=== PATIENT | female | born 1945 | race Caucasian/White ===

== ENCOUNTER 2020-12-05 08:29 | Outpatient (REF) | payer MEDICARE, SELFPAY ==
[2020-12-05 10:00] LABS: Alanine Aminotransferase 37 U/L (0-31); Albumin Level 4.7 g/dL (3.5-5.0); Alkaline Phosphatase 58 U/L (39-117); Anion Gap 13 (12-20); Aspartate Amino Transferase 32 U/L (5-31); Bilirubin Total 0.7 mg/dL (0.0-1.0); Blood Urea Nitrogen 13 mg/dL (9-16); Calcium 9.7 mg/dL (8.4-10.2); Carbon Dioxide 30 mmol/L (22-29); Chloride 103 mmol/L (96-108); Cholesterol 270 mg/dL; Estimated Glomerular Filt Rate > 60; Glucose Fasting 130 mg/dL (60-99); HDL Cholesterol 47 mg/dL; LDL Cholesterol Calculated 162 mg/dl; Potassium 5.2 mmol/L (3.3-5.1); Sodium 141 mmol/L (135-145); Total Protein 7.8 g/dL (6.5-8.0); Triglycerides 305 mg/dL
[2020-12-09 12:56] LABS: Vitamin D 25-OH, D2 <4 ng/mL; Vitamin D 25-OH, D3 21 ng/mL; Vitamin D 25-OH, Total 21 ng/mL (30-100)
== END 2020-12-05 08:30 | disposition home or self-care (01) ==
LOC: HO.LAB 08:29
PROVIDERS: PCP Internal Medicine; Visit Provider Internal Medicine
DX: I10 Essential (primary) hypertension (principal); E55.9 Vitamin D deficiency, unspecified; E78.5 Hyperlipidemia, unspecified
CPT/HCPCS: 36415; 80053; 80061; 82306

== ENCOUNTER 2021-08-14 08:22 | Outpatient (REF) | payer MEDICARE, SELFPAY ==
[2021-08-14 10:01] LABS: Alanine Aminotransferase 29 U/L (0-31); Albumin Level 4.8 g/dL (3.5-5.0); Alkaline Phosphatase 58 U/L (39-117); Anion Gap 15 (12-20); Aspartate Amino Transferase 25 U/L (5-31); Bilirubin Total 0.6 mg/dL (0.0-1.0); Blood Urea Nitrogen 13 mg/dL (9-16); Calcium 10.2 mg/dL (8.4-10.2); Carbon Dioxide 28 mmol/L (22-29); Chloride 103 mmol/L (96-108); Cholesterol 287 mg/dL; Estimated Glomerular Filt Rate > 60; Glucose Fasting 127 mg/dL (60-99); HDL Cholesterol 46 mg/dL; LDL Cholesterol Calculated 170 mg/dl; Sodium 141 mmol/L (135-145); Total Protein 7.9 g/dL (6.5-8.0); Triglycerides 358 mg/dL
[2021-08-18 14:56] LABS: Vitamin D 25-OH, D2 <4 ng/mL; Vitamin D 25-OH, D3 34 ng/mL; Vitamin D 25-OH, Total 34 ng/mL (30-100)
== END 2021-08-14 08:23 | disposition home or self-care (01) ==
LOC: HO.LAB 08:22
PROVIDERS: PCP Internal Medicine; Visit Provider Internal Medicine
DX: E55.9 Vitamin D deficiency, unspecified (principal); E78.5 Hyperlipidemia, unspecified; E11.9 Type 2 diabetes mellitus without complications
CPT/HCPCS: 36415; 80053; 80061; 82306

== ENCOUNTER 2021-08-16 10:34 | Outpatient (REF) | payer MEDICARE, SELFPAY ==
[2021-08-16 11:52] LABS: Creatinine Urine 35.89 mg/dL; Microalbumin Urine < 5.0 mg/L
== END 2021-08-16 10:35 | disposition home or self-care (01) ==
LOC: HO.LNP 10:34
PROVIDERS: Visit Provider Internal Medicine
DX: E11.9 Type 2 diabetes mellitus without complications (principal)
CPT/HCPCS: 82043

== ENCOUNTER 2022-01-15 08:30 | Outpatient (REF) | payer MEDICARE, SELFPAY ==
[2022-01-15 09:28] LABS: Alanine Aminotransferase 16 U/L (0-31); Albumin Level 4.5 g/dL (3.5-5.0); Alkaline Phosphatase 51 U/L (39-117); Anion Gap 10 (12-20); Aspartate Amino Transferase 21 U/L (5-31); Bilirubin Total 0.6 mg/dL (0.0-1.0); Blood Urea Nitrogen 12 mg/dL (9-16); Calcium 9.7 mg/dL (8.4-10.2); Carbon Dioxide 29 mmol/L (22-29); Chloride 106 mmol/L (96-108); Cholesterol 165 mg/dL; Estimated Glomerular Filt Rate > 60; Glucose Fasting 121 mg/dL (60-99); HDL Cholesterol 50 mg/dL; LDL Cholesterol Calculated 87 mg/dl; Potassium 4.9 mmol/L (3.3-5.1); Sodium 140 mmol/L (135-145); Total Protein 7.3 g/dL (6.5-8.0); Triglycerides 143 mg/dL
[2022-01-15 11:50] LABS: Creatinine Urine 201.09 mg/dL; Microalbum/Creatinine Ratio Ur 9.9 ug/mg cr
[2022-01-21 14:41] LABS: Vitamin D 25-OH, D2 <4 ng/mL; Vitamin D 25-OH, D3 32 ng/mL; Vitamin D 25-OH, Total 32 ng/mL (30-100)
== END 2022-01-15 08:31 | disposition home or self-care (01) ==
LOC: HO.LAB 08:30
PROVIDERS: PCP Internal Medicine; Visit Provider Internal Medicine
DX: E78.2 Mixed hyperlipidemia (principal); E11.9 Type 2 diabetes mellitus without complications; E78.5 Hyperlipidemia, unspecified; E55.9 Vitamin D deficiency, unspecified
CPT/HCPCS: 36415; 80053; 80061; 82043; 82306

== ENCOUNTER 2023-03-07 08:43 | Outpatient (REF) | payer MEDICARE, SELFPAY ==
[2023-03-07 10:35] LABS: Creatinine Urine 121.92 mg/dL; Microalbum/Creatinine Ratio Ur 8.2 ug/mg cr
[2023-03-07 11:02] LABS: Alanine Aminotransferase 23 U/L (0-31); Albumin Level 4.5 g/dL (3.5-5.0); Alkaline Phosphatase 60 U/L (39-117); Anion Gap 13 (12-20); Aspartate Amino Transferase 22 U/L (5-31); Bilirubin Total 0.6 mg/dL (0.0-1.0); Blood Urea Nitrogen 11 mg/dL (9-16); Calcium 10.3 mg/dL (8.4-10.2); Carbon Dioxide 28 mmol/L (22-29); Chloride 104 mmol/L (96-108); Cholesterol 262 mg/dL; Estimated Glomerular Filt Rate > 60; Glucose Fasting 126 mg/dL (60-99); HDL Cholesterol 47 mg/dL; LDL Cholesterol Calculated 155 mg/dl; Potassium 5.2 mmol/L (3.3-5.1); Sodium 140 mmol/L (135-145); Total Protein 7.8 g/dL (6.5-8.0); Triglycerides 304 mg/dL
[2023-03-07 11:18] LABS: Vitamin D 25-OH Total 37.4 ng/mL (>30)
== END 2023-03-07 08:44 | disposition home or self-care (01) ==
LOC: HO.LAB 08:43
PROVIDERS: PCP Internal Medicine; Visit Provider Internal Medicine
DX: E55.9 Vitamin D deficiency, unspecified (principal); E11.9 Type 2 diabetes mellitus without complications; E78.5 Hyperlipidemia, unspecified
CPT/HCPCS: 36415; 80053; 80061; 82043; 82306

== ENCOUNTER 2023-03-11 08:30 | Outpatient (REF) | payer MEDICARE, SELFPAY ==
--- NOTE | 2023-03-11 08:41 | ECG_ITS ---
Test Reason : CK RHYTHM Blood Pressure : / mmHG Vent. Rate : 098 BPM Atrial Rate : 098 BPM P-R Int : 160 ms QRS Dur : 076 ms QT Int : 356 ms P-R-T Axes : 022 -22 057 degrees QTc Int : 454 ms Normal sinus rhythm Moderate voltage criteria for LVH, may be normal variant ( R in aVL , Rob product ) Borderline ECG No previous ECGs available Referred By: Peri Trinidad Electronically Signed By:Eduardo Nunes
[2023-03-11 09:58] LABS: Creatinine Urine 119.64 mg/dL
[2023-03-11 10:10] LABS: Alanine Aminotransferase 22 U/L (0-31); Albumin Level 4.6 g/dL (3.5-5.0); Alkaline Phosphatase 60 U/L (39-117); Anion Gap 13 (12-20); Aspartate Amino Transferase 22 U/L (5-31); Bilirubin Total 0.6 mg/dL (0.0-1.0); Blood Urea Nitrogen 14 mg/dL (9-16); Calcium 10.2 mg/dL (8.4-10.2); Carbon Dioxide 28 mmol/L (22-29); Chloride 106 mmol/L (96-108); Cholesterol 268 mg/dL; Estimated Glomerular Filt Rate > 60; Glucose Fasting 134 mg/dL (60-99); Glucose Random 135 mg/dL (60-115); HDL Cholesterol 49 mg/dL; LDL Cholesterol Calculated 162 mg/dl; Potassium 5.1 mmol/L (3.3-5.1); Sodium 142 mmol/L (135-145); Total Protein 8.1 g/dL (6.5-8.0); Triglycerides 285 mg/dL
[2023-03-11 10:17] LABS: Vitamin D 25-OH Total 36.9 ng/mL (>30)
[2023-03-12 16:29] LABS: Calcium (PTHI) 9.9 mg/dL (8.6-10.4); PTHI 33 pg/mL (16-77)
[2023-03-14 13:08] LABS: Calcium, Ionized 5.2 mg/dL (4.7-5.5)
== END 2023-03-11 08:31 | disposition home or self-care (01) ==
LOC: HO.LAB 08:30
PROVIDERS: PCP Internal Medicine; Visit Provider Internal Medicine
DX: E83.52 Hypercalcemia (principal); E78.5 Hyperlipidemia, unspecified; E55.9 Vitamin D deficiency, unspecified; E11.9 Type 2 diabetes mellitus without complications; E87.5 Hyperkalemia; I10 Essential (primary) hypertension
CPT/HCPCS: 36415; 80053; 80061; 82043; 82306; 82330; 83970; 93005

== ENCOUNTER 2023-05-26 16:42 | Outpatient (AMB) | payer MEDICARE, SELFPAY ==
[2023-05-26 16:44] VITALS: BP 160/72; BMI 26.6
--- NOTE | 2023-05-26 16:44 | A.OFFPC_ITS ---
Vital Signs 05/26/23 16:44 05/26/23 17:10 Height 5 ft 1 in Weight 141 lb BMI 26.6 BP 160/72 H 160/80 H Blood Pressure Location Lt brachial Lt brachial Position Sitting Sitting Intake Visit Reasons: PE Intake Note: Patient here for a physical exam External Grinder Tender Required: No Accompanied by: Family/Other Allergies penicillin V Allergy (Intermediate, Verified 05/26/23 16:53) rash Medication List - Last Reconciled 05/26/23 by Peri Trinidad MD blood pressure monitor As directed cholecalciferol (vitamin D3) 50 mcg PO DAILY 90 days lisinopril 30 mg PO DAILY 90 days Tobacco use date assessed: 11/05/22 Fall risk assessment: No Falls in past year Last assessed Fall Risk: 05/26/23 Dental Screening Dental Screen Date: 05/26/23 Did you have a dental visit in the last 12 months?: No Did you have a dental problem in the last 6 months where you did not have access to dental care?: No Was dental information given to patient?: Patient has dentist HPI HPI Comments History of Present Illness Details This is a 77-year-old female with diabetes mellitus type 2 that comes for her physical exam accompanied by son in law. Last A1c was within goal. Declines mammogram and bone density. No need for colonoscopy or Pap smear due to age. LDL not on goal and I will add statin. Blood pressure elevated and will be recheck in 3 weeks by nurse navigator. [facility] Medical History Mixed hyperlipidemia Diabetes mellitus Hypovitaminosis D Knee pain Essential hypertension Surgical History History of appendectomy H/O: section Family History Father Glaucoma Alzheimer disease Mother Hypertension Renal failure Social History Housing: House Alcohol intake: never Patient Tobacco Use Status: Never used Tobacco e-Cigarette/Vaping Use: Never Used Second Hand Smoke Exposure: No service: No Current occupational status: unemployed Cognitive needs: No Hearing needs: No Vision needs: Yes Questionnaire Thrive Questionnaire Date Thrive assessed: 11/05/22 CONSUELO-7 AMB Questionnaire CONSUELO-7 Date CONSUELO - 7 assessed: 11/05/22 Source: Developed by Drs. Eliu Davis, Nara Johnson, Chris Bone and colleagues, with an educational mary jane from [employer]. Review of Systems Const All systems reviewed & are unremarkable except as noted in HPI and below Eyes Reports no additional complaints, Denies change in vision and Denies other visual disturbances Card Denies chest pain at rest, Denies chest pain with activity, Denies edema, Denies irregular heart rhythm, Denies claudication, Denies dyspnea, Denies dyspnea on exertion, Denies orthopnea, Denies paroxysmal nocturnal dyspnea and Denies slow heart rate Resp Denies cough, Denies dyspnea and Denies dyspnea on exertion GI Denies abdominal pain, Denies change in bowel habits, Denies excessive flatus, Denies nausea and Denies vomiting Denies urinary incontinence, Denies urinary hesitancy and Denies urinary urgency Musc Denies abnormal gait, Denies atrophy, Denies deformity and Denies limited range of motion Skin/Breast Denies bleeding lesions, Denies changing lesions and Denies rash Neuro Denies abnormal gait and Denies lack of coordination Physical exam (Primary Care) Vital Signs: Last Vital Signs BP 160/72 H 05/26/23 16:44 BMI result Body Mass Index 26.6 Tobacco/Smoking Status: Tobacco use Status Tobacco use date assessed 11/05/22 05/26/23 16:50 Patient Tobacco Use Status Never used Tobacco 05/26/23 16:50 e-Cigarette/Vaping Use Never Used 05/26/23 16:50 Thrive Assessment: Date of Thrive Assessment Date Thrive assessed 11/05/22 05/26/23 16:50 Const Orientation/consciousness: patient oriented x3 HENMT Head: Yes normal to inspection, Yes normocephalic and Yes atraumatic Ears: external ears normal Eyes General: appearance normal, both eyes and all related structures Eyelids: Yes eyelids normal Conjunctivae: conjunctivae normal Neck Neck: Yes normal visual inspection and Yes supple Resp Effort & Inspection: normal respiratory effort Auscultation: clear to auscultation bilaterally Cardio Jugular venous distension: no JVD Rate: regular rate Rhythm: regular rhythm Heart sounds: S1 normal heart sound present and S2 normal heart sound present GI Inspection: Yes normal to inspection Palpation (GI): Soft to palpation and nontender Auscultation: normal bowel sounds Skin General skin exam: no rashes or lesions noted Neuro General: patient oriented x3 and no focal motor deficits Extrem General: Yes full ROM Psych Appearance: grossly normal Assessment and Plan Assessment & Plan (1) Physical exam: Code(s): Z00.00 - Encounter for general adult medical examination without abnormal findings Plan: Repeat in a year. (2) Diabetes mellitus: Code(s): E11.9 - Type 2 diabetes mellitus without complications Plan: Continue with diet. A1c goal is equal or less than 7%. Orders: Orders Lipid Panel Today E78.5 - Hyperlipidemia, unspecified Comprehensive [place]. Panel Fast Today E11.9 - Type 2 diabetes mellitus without complications Vitamin D 25-OH Total Today E55.9 - Vitamin D deficiency, unspecified Microalbumin, Random (w Creat) Today E11.9 - Type 2 diabetes mellitus without complications Medications: New rosuvastatin 20 mg PO DAILY 90 days 90 tabs 1RF E78.2 - Mixed hyperlipidemia Coding Level of Care Code Est Pt Prev Care >65y(88819) Diagnoses Physical exam Z00.00 Diabetes mellitus E11.9 Time Spent (min) 34
[2023-05-26 17:10] VITALS: BP 160/80
== END 2023-05-26 17:06 | disposition home or self-care (01) ==
PROVIDERS: PCP Internal Medicine; Visit Provider Internal Medicine
DX: Z00.00 Encounter for general adult medical examination without abnormal findings (principal); E11.9 Type 2 diabetes mellitus without complications
CPT/HCPCS: 99397

== ENCOUNTER 2023-06-17 13:07 | Outpatient (AMB) | payer MEDICARE, SELFPAY ==
--- NOTE | 2023-06-17 13:16 | A.OFFVIS_ITS ---
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 Recent EKG had shown left ventricular hypertrophy and hence she has been referred. There is no history of any coronary artery disease or myocardial infarction or cardiomyopathy or in fact anything cardiac related. She has got poorly controlled hypertension. It seems that there might be also an anxiety component related. She does not do home blood pressures. With activity, she may feel short of breath. No clear anginal-type chest pains. Her hemoglobin A1c is borderline high at 6 0.5%. Not on any diabetic medications. Also has elevated lipids. Daughter acted as interpreter translator. Appropriate form signed. [facility] Medical History Mixed hyperlipidemia Diabetes mellitus Hypovitaminosis D Knee pain Essential hypertension Surgical History History of appendectomy H/O: section Family History Father Glaucoma Alzheimer disease Mother Hypertension Renal failure Social History Housing: House Alcohol intake: never Patient Tobacco Use Status: Never used Tobacco e-Cigarette/Vaping Use: Never Used Second Hand Smoke Exposure: No service: No Current occupational status: unemployed Cognitive needs: No Hearing needs: No Vision needs: Yes Review of Systems Const Denies weakness Eyes Denies loss of vision ENT Denies dizziness Card Denies chest pain, Denies chest pain with activity, Denies syncope, Denies rapid heart rate, Denies pedal edema, Denies edema, Denies leg edema, Denies lightheadedness, Denies palpitations, Denies dyspnea, Denies dyspnea on exertion and Denies orthopnea Resp Denies cough, Denies dyspnea, Denies dyspnea on exertion and Denies wheezing GI Denies hematochezia and Denies change in stool character Denies hematuria, Denies urinary frequency and Denies dysuria Musc Denies abnormal gait, Denies muscle cramps, Denies muscle weakness, Denies numbness, Denies radiating pain into limb and Denies tingling Skin/Breast Denies nail changes and Denies rash Neuro Denies Abnormal speech present, Denies abnormal gait, Denies dizziness, Denies syncope, Denies loss of vision, Denies memory loss, Denies numbness, Denies tingling and Denies weakness Psych Denies depression and Denies memory loss Endo Denies palpitations Aller/Immun Denies wheezing Physical Exam Vital Signs: Last Vital Signs Pulse 116 H 06/17/23 13:17 BP 160/80 H 06/17/23 13:17 BMI result Body Mass Index 27.0 Const General: comfortable and no acute distress Orientation/consciousness: patient oriented x3 HEENT Other: Unremarkable Head: Yes normal to inspection Neck Neck: Yes normal visual inspection Chest Chest palpation & inspection: normal inspection of the chest Resp Auscultation: clear to auscultation bilaterally Cardio Palpation: normal PMI Heart sounds: S1 normal heart sound present, S2 normal heart sound present, no gallops, no murmurs and no rubs GI Palpation (GI): Soft to palpation Back/Spine/Pelvis Other: unremarkable Skin General skin exam: no rashes or lesions noted Neuro General: patient oriented x3 Speech: No Abnormal speech present Extrem General: Yes normal to inspection Psych Mental Status: mental status grossly normal Assessment & Plan Assessment & Plan (1) Essential hypertension: Code(s): I10 - Essential (primary) hypertension (2) LVH (left ventricular hypertrophy): Code(s): I51.7 - Cardiomegaly (3) SOB (shortness of breath): Code(s): R06.02 - Shortness of breath Plan EKG with sinus rhythm at 98/Min; left ventricular hypertrophy by voltage criteria. LVH on EKG may indicate longstanding poorly controlled hypertension. Needs echocardiogram for LV function assessment as well as any diastolic dysfunction. Due to multiple risk factors including poorly controlled hypertension, borderline diabetes, dyslipidemia, proceed with myocardial perfusion imaging study for ischemia evaluation. For hypertension, add Amlodipine. She is currently on lisinopril. Potassium is already borderline high. Hence will probably not be able to increase the dose further. Plan discussed with patient and daughter. Orders: Orders NM cardiolite stress test Today I25.10 - Atherosclerotic heart disease of [place] coronary artery without angina pectoris, R06.02 - Shortness of breath CA echo transthoracic complete Today I51.7 - Cardiomegaly CA stress test Today I25.10 - Atherosclerotic heart disease of [place] coronary artery without angina pectoris, R06.02 - Shortness of breath Medications: New amlodipine 10 mg PO DAILY 90 tabs 3RF Coding Level of Care Code New Pt Level 4 (81473) Diagnoses Essential hypertension I10 LVH (left ventricular hypertrophy) I51.7 SOB (shortness of breath) R06.02
[2023-06-17 13:17] VITALS: BP 160/80; PULSE 116; BMI 27.0
== END 2023-06-17 13:44 | disposition home or self-care (01) ==
PROVIDERS: PCP Internal Medicine; Visit Provider Internal Medicine
DX: I10 Essential (primary) hypertension (principal); I51.7 Cardiomegaly; R06.02 Shortness of breath
CPT/HCPCS: 99204

== ENCOUNTER → 2023-06-17 13:07 | Outpatient (BNVA) | payer MEDICARE, SELFPAY | PROVIDERS: PCP Internal Medicine; Visit Provider Internal Medicine ==

== ENCOUNTER 2023-07-15 08:52 | Outpatient (AMB) | payer MEDICARE, SELFPAY ==
--- NOTE | 2023-07-15 09:00 | MHC.PC.OV ---
Vital Signs 07/15/23 09:03 Height 5 ft 7 in Weight 142 lb BMI 22.2 BP 140/60 H Blood Pressure Location Lt brachial Position Sitting Pulse 93 Pulse Source Pulse Oximeter Pulse Oximetry (%) 98 Oxygen Delivery Method Room Air Intake Visit Reasons: DM Intake Note: Patient here for a follow up DM Loss Prevention Lead Required: No Accompanied by: Self / Same As Patient Allergies penicillin V Allergy (Intermediate, Verified 07/15/23 09:33) rash Medication List - Last Reconciled 07/15/23 by Peri Trinidad MD amlodipine 10 mg PO DAILY blood pressure monitor As directed cholecalciferol (vitamin D3) 50 mcg PO DAILY 90 days lisinopril 20 mg PO DAILY rosuvastatin 20 mg PO DAILY 90 days Tobacco use date assessed: 11/05/22 Fall risk assessment: No Falls in past year Last assessed Fall Risk: 07/15/23 Dental Screening Dental Screen Date: 07/15/23 Did you have a dental visit in the last 12 months?: No Did you have a dental problem in the last 6 months where you did not have access to dental care?: No Was dental information given to patient?: Patient has dentist HPI HPI Comments History of Present Illness Details This is a 77-year-old female with diabetes mellitus type 2 controlled with diet, hypertension, mixed hyperlipidemia and low vitamin-D that comes accompanied by son in law for follow-up on her conditions. A1c within goal. Blood pressure stable. Last cholesterol was elevated and this will be repeated. Vitamin-D normal on supplements. No chest pain or shortness of breath. [facility] Medical History Mixed hyperlipidemia Diabetes mellitus Hypovitaminosis D Knee pain Essential hypertension Surgical History History of appendectomy H/O: section Family History Father Glaucoma Alzheimer disease Mother Hypertension Renal failure Social History Housing: House Alcohol intake: never Patient Tobacco Use Status: Never used Tobacco e-Cigarette/Vaping Use: Never Used Second Hand Smoke Exposure: No service: No Current occupational status: unemployed Cognitive needs: No Hearing needs: No Vision needs: Yes Questionnaire Thrive Questionnaire Date Thrive assessed: 11/05/22 CONSUELO-7 AMB Questionnaire CONSUELO-7 Date CONSUELO - 7 assessed: 11/05/22 Source: Developed by Drs. Eliu Davis, Nara Johnson, Chris Bone and colleagues, with an educational mary jane from [employer]. Review of Systems Const All systems reviewed & are unremarkable except as noted in HPI and below Eyes Reports no additional complaints, Denies change in vision and Denies other visual disturbances Card Denies chest pain at rest, Denies chest pain with activity, Denies edema, Denies irregular heart rhythm, Denies claudication, Denies dyspnea, Denies dyspnea on exertion, Denies orthopnea, Denies paroxysmal nocturnal dyspnea and Denies slow heart rate Resp Denies cough, Denies dyspnea and Denies dyspnea on exertion GI Denies abdominal pain, Denies change in bowel habits, Denies excessive flatus, Denies nausea and Denies vomiting Denies urinary incontinence, Denies urinary hesitancy and Denies urinary urgency Musc Denies abnormal gait, Denies atrophy, Denies deformity and Denies limited range of motion Skin/Breast Denies bleeding lesions, Denies changing lesions and Denies rash Neuro Denies abnormal gait, Denies behavioral changes and Denies lack of coordination Psych Denies behavioral changes Physical exam (Primary Care) Vital Signs: Last Vital Signs Pulse 93 07/15/23 09:03 BP 140/60 H 07/15/23 09:03 Pulse Ox 98 07/15/23 09:03 Oxygen Delivery Method Room Air 07/15/23 09:03 BMI result Body Mass Index 22.2 Tobacco/Smoking Status: Tobacco use Status Tobacco use date assessed 11/05/22 07/15/23 09:02 Patient Tobacco Use Status Never used Tobacco 07/15/23 09:02 e-Cigarette/Vaping Use Never Used 07/15/23 09:02 Thrive Assessment: Date of Thrive Assessment Date Thrive assessed 11/05/22 07/15/23 09:02 Eyes General: appearance normal, both eyes and all related structures Eyelids: Yes eyelids normal Conjunctivae: conjunctivae normal Neck Neck: Yes normal visual inspection and Yes supple Resp Effort & Inspection: normal respiratory effort Auscultation: clear to auscultation bilaterally Cardio Jugular venous distension: no JVD Rate: regular rate Rhythm: regular rhythm Heart sounds: S1 normal heart sound present and S2 normal heart sound present Extrem General: Yes full ROM Office Procedures Flu Questionnaire Does the patient have a severe egg allergy?: No Does the patient have severe life threatening allergies?: No Does the patient have a fever or illness today?: No Has the patient ever had Guillain-[place] Syndrome?: No Has the patient ever had any past reaction to a flu shot?: No Results AMB Hemoglobin A1c AMB Hemoglobin A1c 6.3 % Last Edit by ALICE Dubois on 07/15/23 09:22 Immunizations flu vacc [id number] 6mos up(PF) 60 mcg(15 mcgx4)/0.5 mL IM syringe Performing Provider: Peri Trinidad MD [facility] Administered by: LAICE Dubois on 07/15/23 09:45 Dose Route Admin Location Dispensed Lot Number Expiration Date NDC Equal Opportunity Officer 0.5 mL IM Right Deltoid 0.5 mL [id number] 03/14/24 80423-373-68 [employer] VIS Given Date VIS Provided VIS Publication Date 07/15/23 Single Vaccine 21 Eligibility Eligibility Date Funding Source Not [facility] Eligible 07/15/23 Private Results Reviewed Results Reviewed: Laboratory Last Values Hgb A1c (Clinic) 6.3 % (4.0-6.0) H 07/15/23 09:20 Assessment and Plan Assessment & Plan (1) Diabetes mellitus: Code(s): E11.9 - Type 2 diabetes mellitus without complications Plan: Continue low-carbohydrate diet. (2) Mixed hyperlipidemia: Code(s): E78.2 - Mixed hyperlipidemia Plan: Continue statins. Repeat lipid panel. LDL goal is less than 70. (3) Hypovitaminosis D: Code(s): E55.9 - Vitamin D deficiency, unspecified Plan: Continue vitamin-D supplements. (4) Essential hypertension: Code(s): I10 - Essential (primary) hypertension Plan: Continue lisinopril and amlodipine. Blood pressure goal is equal or less than 130/80. Recheck blood pressure with nurse navigator in 3 weeks. Orders: Orders Influenza [id number] Immunization Today Z23 - Encounter for immunization Comprehensive [place]. Panel Fast Today E11.9 - Type 2 diabetes mellitus without complications AMB Hemoglobin A1c Today E11.9 - Type 2 diabetes mellitus without complications Vitamin D 25-OH Total Today E55.9 - Vitamin D deficiency, unspecified Lipid Panel Today E78.5 - Hyperlipidemia, unspecified Microalbumin, Random (w Creat) Today E11.9 - Type 2 diabetes mellitus without complications Coding Level of Care Code Est Pt Level 4 (41995) Diagnoses Diabetes mellitus E11.9 Mixed hyperlipidemia E78.2 Hypovitaminosis D E55.9 Essential hypertension I10 Time Spent (min) 24
[2023-07-15 09:03] VITALS: BP 140/60; PULSE 93; O2SAT 98; BMI 22.2
== END 2023-07-15 09:47 | disposition home or self-care (01) ==
PROVIDERS: PCP Internal Medicine; Visit Provider Internal Medicine
DX: E11.9 Type 2 diabetes mellitus without complications (principal); E78.2 Mixed hyperlipidemia; E55.9 Vitamin D deficiency, unspecified; I10 Essential (primary) hypertension; Z23 Encounter for immunization
CPT/HCPCS: 83036; 90471; 90686; 99214

== ENCOUNTER → 2023-08-01 08:04 | Outpatient (REF) | payer MEDICARE, SELFPAY ==
--- NOTE | 2023-08-01 08:09 | CA_ITS ---
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 The visually estimated ejection fraction is >70%. - There is mild calcification of the aortic valve. - There is mild aortic valve regurgitation. - There is moderate mitral annular calcification. Findings Left Ventricle Normal left ventricular cavity size. The left ventricular systolic function is hyperdynamic. The visually estimated ejection fraction is >70%. There is no evidence of regional wall motion abnormalities. Evidence suggests grade I (mild) diastolic dysfunction. There is mild septal asymmetric hypertrophy. Right Ventricle Normal right ventricular cavity size and systolic function. Atria Both atria are normal in size. Aortic Valve There is a normal trileaflet aortic valve. There is mild calcification of the aortic valve. There is no aortic valve stenosis. There is mild aortic valve regurgitation. Mitral Valve There is moderate mitral annular calcification. There is no mitral valve regurgitation. There is no mitral valve stenosis. Pulmonic Valve The pulmonic valve is likely normal. Tricuspid Valve There is trace tricuspid valve regurgitation. There is no evidence of pulmonary hypertension. Great Vessels The asc aorta is normal in size. Venous The inferior vena cava is normal in size and collapses greater than 50% with inspiration. Pericardium/Pleural There is no evidence of pericardial effusion. Prior Study Comparison No prior study available for comparison. Measurements 2D Linear Measurements IVSd: 1.17 0.6-0.9/0.6-1.0 cm LVIDd: 3.83 3.9-5.3/4.2-5.9 cm LVIDd Index: 2.27 2.4-3.2/2.2-3.1 cm/m2 LVIDs: 1.48 2.0-3.6 cm LVPWd: 0.89 0.7-1.1 cm LA Diam: 3.60 2.7-3.8/3.0-4.0 cm LAIDs Index: 2.13 1.5-2.3 cm/m2 LV Mass: 153.97 67-162/88-224 g LV Mass Index: 91.11 43-95/49-115 g/m2 LVOT Diam: 1.90 3.0+(-)1.3 cm 2D Systolic Function EF 4C: 74.20 >55% EF 2C: 72.50 >55% EF BiP: 73.90 >55% Mitral Valve MV VTI: 0.28 MV Pk Sanjay: 1.90 MV Mn Sanjay: 0.98 MV Pk Grad: 14.00 MV Mn Grad: 5.00 MV Pk E: 1.07 MV PK A: 1.60 MV Decel Time: 237.00 E/A: 0.70 E'Lateral: 3.48 E'Medial: 4.13 E/E' Med: 25.90 E/E' Lat: 30.70 PHT: 69.00 MVA PHT: 3.19 MVA Continuity: 3.41 Decel [place]: 4.50 Aortic Valve AoV Pk Sanjay: 1.86 AoV Mn Sanjay: 1.33 AoV VTI: 0.41 AoV Pk Grad: 14.00 Aov Mn Grad: 8.00 ANNAMARIE Cont.VTI: 2.34 AI Pk Sanjay: 4.24 AI VTI: 1.38 AI [place]: 3.86 LVOT LVOT Pk Sanjay: 1.59 LVOT Mn Sanjay: 1.01 LVOT VTI: 0.34 LVOT Pk Grad: 10.00 LVOT Mn Grad: 5.00 LVOT Diam: 1.90 LVOT Area: 2.84 Diastolic Function MV Pk E: 1.07 MV Pk A: 1.60 E/A: 0.70 E'Medial: 4.13 E/E' Med: 25.90 E' Laterial: 3.48 E/E' Lat: 30.70 Right Ventricle TAPSE (mm): 25.60 TVS' Sanjay: 12.60 Tricuspid Valve TR Pk Sanjay: 1.96 TR Pk Grad: 15.00 RA Press: 3.00 RVSP: 18.00 Great Vessels Aorta Sinus of Valsalva: 3.20 2.0-3.5 cm Ao Asc: 3.60 2.1-3.4 cm Pulmonary Valve PV Pk Sanjay: 1.21 Peak PV Grad: 6.00 Updated in Other Vendor System with Status of Final Erasto Cordoba MD electronically signed on 08/02/2023 1:17:20 PM with status of Final
--- NOTE | 2023-08-01 08:09 | CA_ITS ---
Acquisition Time: 2023-08-01 09:13:52 Total Exercise Time: 00:00:11 Test Indications: ABN EKG Medications: SEE H Protocol: ALIN Max HR: 113 BPM 79% of Pred: 143 BPM Max BP: 138/060 mmHG Max Work Load: 1.0 METS Exercise stress test exercise 11 sec of Alin protocol termintated due to safety/ pt could not keep up with treadmill. Patient refused nculear portion due to claustophobia. Referred By: Erasto Cordoba Overread By: Maribeth Jenkins
== END ==
LOC: HO.CARD 08:04
PROVIDERS: PCP Internal Medicine; Visit Provider Internal Medicine
DX: I51.7 Cardiomegaly (principal); I25.10 Atherosclerotic heart disease of native coronary artery without angina pectoris; R06.02 Shortness of breath
CPT/HCPCS: 93017; 93306

== ENCOUNTER → 2023-08-01 08:09 | Outpatient (BNV) | payer MEDICARE, SELFPAY | PROVIDERS: PCP Internal Medicine; Visit Provider Nurse Practitioner | DX: R94.31 Abnormal electrocardiogram [ECG] [EKG] (principal) | CPT/HCPCS: 93016; 93018; 93306 ==

== ENCOUNTER 2023-11-27 09:07 | Outpatient (AMB) | payer MEDICARE, SELFPAY ==
--- NOTE | 2023-11-27 09:09 | MHC.PC.OV ---
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 by: Daughter Allergies penicillin V Allergy (Intermediate, Verified 11/27/23 09:24) rash Medication List - Last Reconciled 11/27/23 by Peri Trinidad MD amlodipine 10 mg PO DAILY blood pressure monitor As directed cholecalciferol (vitamin D3) 50 mcg PO DAILY 90 days clindamycin HCl 300 mg PO TID lisinopril 20 mg PO DAILY rosuvastatin 20 mg PO DAILY 90 days Tobacco use date assessed: 11/27/23 Fall risk assessment: No Falls in past year Last assessed Fall Risk: 11/27/23 Dental Screening Dental Screen Date: 11/27/23 Did you have a dental visit in the last 12 months?: Yes Did you have a dental problem in the last 6 months where you did not have access to dental care?: No Was dental information given to patient?: Patient has dentist HPI HPI Comments History of Present Illness Details This is a 78-year-old female with hypertension, diabetes mellitus type 2, mixed hyperlipidemia and low vitamin-D that comes today accompanied by daughter complaining of muscle cramps that has been happening for few months. She thought it was rosuvastatin and stop taking it for a few months but still muscle cramps in hands and legs are happening. I will check her magnesium and other electrolytes. Blood pressure stable. Vitamin-D levels and LDL will be checked. No chest pain or shortness of breath. Minimal depression due to the loss of her . A1c of 7% today control with low-carbohydrate diet. [facility] Medical History Mixed hyperlipidemia Diabetes mellitus Hypovitaminosis D Knee pain Essential hypertension Surgical History History of appendectomy H/O: section Family History Father Glaucoma Alzheimer disease Mother Hypertension Renal failure Social History Housing: House Alcohol intake: never Patient Tobacco Use Status: Never used Tobacco e-Cigarette/Vaping Use: Never Used Second Hand Smoke Exposure: No service: No Current occupational status: unemployed Cognitive needs: No Hearing needs: No Vision needs: Yes Questionnaire PHQ-9 Over the last 2 weeks, how often have you been bothered by any of the following problems? 1. Little interest or pleasure in doing things: not at all 2. Feeling down, depressed, or hopeless: more than half the days 3. Trouble falling or staying asleep, or sleeping too much: more than half the days 4. Feeling tired or having little energy: not at all 5. Poor appetite or overeating: not at all 6. Feeling bad about yourself - or that you are a failure or have let yourself or your family down: not at all 7. Trouble concentrating on things, such as reading the newspaper or watching television: not at all 8. Moving or speaking so slowly that other people could have noticed. Or the opposite - being so fidgety or restless that you have been moving around a lot more than usual: not at all 9. Thoughts that you would be better off or of hurting yourself in some way: not at all Total score: 4 Depression Screening Interpretation: Negative Depression Screening Done: Yes 02611 - PHQ-9 Billing: Yes Source: Developed by Drs. Eliu Davis, Nara Johnson, Chris Bone and colleagues, with an educational mary jane from [email or web address]. Thrive Questionnaire Date Thrive assessed: 11/27/23 I am a: Patient What is your living situation today?: I have a steady place to live Within the past 12 months, did the food you bought not last and you didn't have the money to get more?: Never true Within the past 12 months, did you worry whether your food would run out before you got money to buy more?: Never true Do you have trouble paying for medicines?: No Do you have trouble getting transportation to medical appointments?: No Do you have trouble paying your heating and electricity bill?: No Do you have trouble taking care of your child, family member or friend?: No Do you have trouble with day-to-day activities such as bathing, preparing meals, shopping, managing finances, etc.?: No Are you currently unemployed and looking for a job?: No Are you interested in more education?: No Please select the resources that you would like help with: None Currently or been in a relationship where the following occur: no concerns reported THRIVE Score: 0 AUDIT C Alcohol Use Questionnaire (AUDIT-C) 1. How often do you have a drink containing alcohol?: Never Total Score: 0 CONSUELO-7 AMB Questionnaire CONSUELO-7 Date CONSUELO - 7 assessed: 11/27/23 Feeling nervous, anxious, or on edge: 0 = Not at all Not being able to stop or control worryin = Not at all Worrying too much about different things: 0 = Not at all Trouble relaxin = Not at all Being so restless that it is hard to sit still: 0 = Not at all Becoming easily annoyed or irritable: 0 = Not at all Feeling afraid as if something awful might happen: 0 = Not at all Total CONSUELO-7 score (0-4 normal; 5-9 mild; 10-14 moderate; 15-21 severe): 0 Source: Developed by Drs. Eliu Davis, Nara Johnson, Chris Bone and colleagues, with an educational mary jane from [email or web address]. CONSUELO-7 Assessment Billing CONSUELO-7 Assessment Tool: CONSUELO-7 Assessment 12948 Review of Systems Const All systems reviewed & are unremarkable except as noted in HPI and below Eyes Reports no additional complaints, Denies change in vision and Denies other visual disturbances Card Denies chest pain at rest, Denies chest pain with activity, Denies edema, Denies irregular heart rhythm, Denies claudication, Denies dyspnea, Denies dyspnea on exertion, Denies orthopnea, Denies paroxysmal nocturnal dyspnea and Denies slow heart rate Resp Denies cough, Denies dyspnea and Denies dyspnea on exertion GI Denies abdominal pain, Denies change in bowel habits, Denies excessive flatus, Denies nausea and Denies vomiting Denies urinary incontinence, Denies urinary hesitancy and Denies urinary urgency Musc Denies abnormal gait, Denies atrophy, Denies deformity and Denies limited range of motion Skin/Breast Denies bleeding lesions, Denies changing lesions and Denies rash Neuro Denies abnormal gait and Denies lack of coordination Physical exam (Primary Care) Vital Signs: Last Vital Signs BP 138/72 11/27/23 09:10 BMI result Body Mass Index 21.9 Tobacco/Smoking Status: Tobacco use Status Tobacco use date assessed 11/27/23 11/27/23 09:18 Patient Tobacco Use Status Never used Tobacco 11/27/23 09:18 e-Cigarette/Vaping Use Never Used 11/27/23 09:18 PHQ-9: PHQ-9 Score PHQ-9: Total score 4 11/27/23 09:28 Depression Screening Interpretation: Negative Thrive Assessment: Date of Thrive Assessment Date Thrive assessed 11/27/23 11/27/23 09:18 Currently or been in a relationship where the following occur: no concerns reported Eyes General: appearance normal, both eyes and all related structures Eyelids: Yes eyelids normal Conjunctivae: conjunctivae normal Neck Neck: Yes normal visual inspection and Yes supple Resp Effort & Inspection: normal respiratory effort Auscultation: clear to auscultation bilaterally Cardio Jugular venous distension: no JVD Rate: regular rate Rhythm: regular rhythm Heart sounds: S1 normal heart sound present and S2 normal heart sound present Extrem General: Yes full ROM Results AMB Hemoglobin A1c AMB Hemoglobin A1c 7.0 % Last Edit by ALICE Dubois on 11/27/23 09:40 Results Reviewed Results Reviewed: Laboratory Last Values Hgb A1c (Clinic) 7.0 % (4.0-6.0) H 11/27/23 09:27 Assessment and Plan Assessment & Plan (1) Diabetes mellitus: Code(s): E11.9 - Type 2 diabetes mellitus without complications Plan: Continue low-carbohydrate diet. A1c goal is equal or less than 7%. (2) Mixed hyperlipidemia: Code(s): E78.2 - Mixed hyperlipidemia Plan: Restart statins. LDL goal is less than 70. (3) Hypovitaminosis D: Code(s): E55.9 - Vitamin D deficiency, unspecified Plan: Continue vitamin-D supplements. (4) Essential hypertension: Code(s): I10 - Essential (primary) hypertension Plan: Continue lisinopril. Blood pressure goal is equal or less than 130/80. (5) Muscle cramps: Code(s): R25.2 - Cramp and spasm Plan: Check magnesium. Orders: Orders AMB Hemoglobin A1c Today E11.9 - Type 2 diabetes mellitus without complications Magnesium Today R25.2 - Cramp and spasm Vitamin D 25-OH Total Today E55.9 - Vitamin D deficiency, unspecified Lipid Panel Today E78.5 - Hyperlipidemia, unspecified Microalbumin, Random (w Creat) Today E11.9 - Type 2 diabetes mellitus without complications Comprehensive [place]. Panel Fast Today I10 - Essential (primary) hypertension Medications: Refilled amlodipine 10 mg PO DAILY 90 tabs 3RF rosuvastatin 20 mg PO DAILY 90 tabs 1RF 90 days E78.2 - Mixed hyperlipidemia cholecalciferol (vitamin D3) 50 mcg PO DAILY 90 caps 3RF 90 days lisinopril 20 mg PO DAILY 90 tabs 0RF Coding Level of Care Code Est Pt Level 4 (02521) Diagnoses Diabetes mellitus E11.9 Mixed hyperlipidemia E78.2 Hypovitaminosis D E55.9 Essential hypertension I10 Muscle cramps R25.2 Additional Codes CONSUELO-7 Assessment Billing - CONSUELO-7 Assessment Tool: CONSUELO-7 Assessment 80166 ([id number]) Time Spent (min) 24
[2023-11-27 09:10] VITALS: BP 138/72; BMI 21.9
== END 2023-11-27 09:34 | disposition home or self-care (01) ==
PROVIDERS: PCP Internal Medicine; Visit Provider Internal Medicine
DX: E11.9 Type 2 diabetes mellitus without complications (principal); E78.2 Mixed hyperlipidemia; E55.9 Vitamin D deficiency, unspecified; I10 Essential (primary) hypertension; R25.2 Cramp and spasm
CPT/HCPCS: 83036; 99214

== ENCOUNTER 2024-03-29 07:56 | Outpatient (REF) | payer MEDICARE, SELFPAY ==
[2024-03-29 09:32] LABS: Alanine Aminotransferase 23 U/L (0-31); Albumin Level 4.9 g/dL (3.5-5.0); Alkaline Phosphatase 46 U/L (39-117); Anion Gap 14 (12-20); Aspartate Amino Transferase 21 U/L (5-31); Bilirubin Total 0.6 mg/dL (0.0-1.0); Blood Urea Nitrogen 18 mg/dL (9-16); Calcium 9.6 mg/dL (8.4-10.2); Carbon Dioxide 26 mmol/L (22-29); Chloride 107 mmol/L (96-108); Cholesterol 150 mg/dL (<200); Estimated Glomerular Filt Rate > 60; Glucose Fasting 135 mg/dL (60-99); HDL Cholesterol 60 mg/dL (>40); LDL Cholesterol Calculated 66 mg/dL (<100); Magnesium 2.4 mg/dL (1.6-2.6); Sodium 142 mmol/L (135-145); Total Protein 8.1 g/dL (6.5-8.0); Triglycerides 121 mg/dL (<150)
[2024-03-29 09:40] LABS: Vitamin D 25-OH Total 47.6 ng/mL (>30)
[2024-03-29 10:06] LABS: Creatinine Urine 88.28 mg/dL; Microalbum/Creatinine Ratio Ur 15.8 ug/mg cr (<30)
== END 2024-03-29 07:57 | disposition home or self-care (01) ==
LOC: HO.LAB 07:56
PROVIDERS: PCP Internal Medicine; Visit Provider Internal Medicine
DX: E78.5 Hyperlipidemia, unspecified (principal); E11.9 Type 2 diabetes mellitus without complications; E55.9 Vitamin D deficiency, unspecified; R25.2 Cramp and spasm
CPT/HCPCS: 36415; 80053; 80061; 82043; 82306; 82570; 83735

== ENCOUNTER 2024-04-01 15:45 | Outpatient (AMB) | payer MEDICARE, SELFPAY ==
--- NOTE | 2024-04-01 16:03 | A.OFFPC_ITS ---
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 by: Daughter Allergies penicillin V Allergy (Intermediate, Verified 04/01/24 16:22) rash Medication List - Last Reconciled 04/01/24 by Peri Trinidad MD amlodipine 10 mg PO DAILY blood pressure monitor As directed cholecalciferol (vitamin D3) 50 mcg PO DAILY 90 days clindamycin HCl 300 mg PO TID lisinopril 20 mg PO DAILY rosuvastatin 20 mg PO DAILY 90 days Tobacco use date assessed: 11/27/23 Fall risk assessment: No Falls in past year Last assessed Fall Risk: 04/01/24 Dental Screening Dental Screen Date: 11/27/23 HPI HPI Comments History of Present Illness Details This is a 78-year-old female with diabetes mellitus type 2 controlled with diet, hypertension, mixed hyperlipidemia and low vitamin-D that comes today accompanied by daughter Dalila for follow-up on her conditions. A1c within goal. Blood pressure stable. LDL within goal. On vitamin-D supplements for her low vitamin-D. Denies any chest or shortness on breath. No acute complaints. [facility] Medical History (Updated 04/02/24 @ 10:36 by Peri Trinidad MD) Mixed hyperlipidemia Diabetes mellitus Hypovitaminosis D Knee pain Essential hypertension Surgical History History of appendectomy H/O: section Family History Father Glaucoma Alzheimer disease Mother Hypertension Renal failure Social History Housing: House Alcohol intake: never Patient Tobacco Use Status: Never used Tobacco e-Cigarette/Vaping Use: Never Used Second Hand Smoke Exposure: No service: No Current occupational status: unemployed Cognitive needs: No Hearing needs: No Vision needs: Yes Questionnaire Thrive Questionnaire Date Thrive assessed: 11/27/23 CONSUELO-7 AMB Questionnaire CONSUELO-7 Date CONSUELO - 7 assessed: 11/27/23 Source: Developed by Thierno Mayeset B.W. Alex, Chris Bone and colleagues, with an educational mary jane from [employer]. Review of Systems Const All systems reviewed & are unremarkable except as noted in HPI and below Card Denies chest pain at rest, Denies chest pain with activity, Denies edema, Denies irregular heart rhythm, Denies claudication, Denies dyspnea, Denies dyspnea on exertion, Denies orthopnea, Denies paroxysmal nocturnal dyspnea and Denies slow heart rate Resp Denies cough, Denies dyspnea and Denies dyspnea on exertion GI Denies abdominal pain, Denies change in bowel habits, Denies excessive flatus, Denies nausea and Denies vomiting Neuro Denies behavioral changes and Denies lack of coordination Psych Denies behavioral changes Physical exam (Primary Care) Vital Signs: Last Vital Signs BP 126/60 04/01/24 16:04 BMI result Body Mass Index 26.6 Tobacco/Smoking Status: Tobacco use Status Tobacco use date assessed 11/27/23 04/01/24 16:11 Patient Tobacco Use Status Never used Tobacco 04/01/24 16:11 e-Cigarette/Vaping Use Never Used 04/01/24 16:11 Thrive Assessment: Date of Thrive Assessment Date Thrive assessed 11/27/23 04/01/24 16:11 Resp Effort & Inspection: normal respiratory effort Auscultation: clear to auscultation bilaterally Cardio Jugular venous distension: no JVD Rate: regular rate Rhythm: regular rhythm Heart sounds: S1 normal heart sound present and S2 normal heart sound present Extrem General: Yes full ROM Results AMB Hemoglobin A1c AMB Hemoglobin A1c 6.5 % Last Edit by ALICE Dubois on 04/01/24 16:1 4 Results Reviewed Results Reviewed: Laboratory Last Values Hgb A1c (Clinic) 6.5 % (4.0-6.0) H 04/01/24 16:03 Assessment and Plan Assessment & Plan (1) Diabetes mellitus: Code(s): E11.9 - Type 2 diabetes mellitus without complications Qualifiers: Diabetes mellitus type: type 2 Diabetes mellitus terminal clerk insulin use: without terminal clerk use Diabetes mellitus complication status: without complication Qualified Code(s): E11.9 - Type 2 diabetes mellitus without complications Plan: Continue diet. A1c goal is equal or less than 7%. (2) Essential hypertension: Code(s): I10 - Essential (primary) hypertension Plan: Continue amlodipine and lisinopril. Blood pressure goal is equal or less than 130/80. (3) Mixed hyperlipidemia: Code(s): E78.2 - Mixed hyperlipidemia Plan: Continue statins. LDL goal is less than 70. (4) Hypovitaminosis D: Code(s): E55.9 - Vitamin D deficiency, unspecified Plan: Continue vitamin-D supplements. Orders: Orders AMB Hemoglobin A1c 04/01/24 E11.9 - Type 2 diabetes mellitus without complications Coding Level of Care Code Est Pt Level 4 (85741) Complex EM visit Add On G2211 Diagnoses Type 2 diabetes mellitus without complication, without long-term current use of insulin E11.9 Diabetes mellitus type: type 2 Diabetes mellitus terminal clerk insulin use: without terminal clerk use Diabetes mellitus complication status: without complication Essential hypertension I10 Mixed hyperlipidemia E78.2 Hypovitaminosis D E55.9 Time Spent (min) 21
[2024-04-01 16:04] VITALS: BP 126/60; BMI 26.6
== END 2024-04-01 16:28 | disposition home or self-care (01) ==
PROVIDERS: PCP Internal Medicine; Visit Provider Internal Medicine
DX: E11.9 Type 2 diabetes mellitus without complications (principal)
CPT/HCPCS: 83036; 99214; G2211

== ENCOUNTER 2024-06-28 08:38 | Outpatient (REF) | payer MEDICARE, SELFPAY ==
[2024-06-28 10:06] LABS: Creatinine Urine 113.88 mg/dL; Microalbum/Creatinine Ratio Ur 9.6 ug/mg cr (<30)
[2024-06-28 10:11] LABS: Alanine Aminotransferase 35 U/L (0-31); Albumin Level 4.9 g/dL (3.5-5.0); Alkaline Phosphatase 52 U/L (39-117); Anion Gap 15 (12-20); Aspartate Amino Transferase 28 U/L (5-31); Bilirubin Total 0.6 mg/dL (0.0-1.0); Blood Urea Nitrogen 19 mg/dL (9-16); Calcium 10.3 mg/dL (8.4-10.2); Carbon Dioxide 29 mmol/L (22-29); Chloride 102 mmol/L (96-108); Cholesterol 151 mg/dL (<200); Estimated Glomerular Filt Rate > 60; Glucose Fasting 142 mg/dL (60-99); HDL Cholesterol 53 mg/dL (>40); LDL Cholesterol Calculated 69 mg/dL (<100); Potassium 4.8 mmol/L (3.3-5.1); Sodium 141 mmol/L (135-145); Total Protein 7.9 g/dL (6.5-8.0); Triglycerides 146 mg/dL (<150)
[2024-06-28 10:26] LABS: Vitamin D 25-OH Total 48.7 ng/mL (>30)
== END 2024-06-28 08:39 | disposition home or self-care (01) ==
LOC: HO.LAB 08:38
PROVIDERS: PCP Internal Medicine; Visit Provider Internal Medicine
DX: E11.9 Type 2 diabetes mellitus without complications (principal); E78.5 Hyperlipidemia, unspecified; E55.9 Vitamin D deficiency, unspecified
CPT/HCPCS: 36415; 80053; 80061; 82043; 82306; 82570

== ENCOUNTER 2024-06-29 16:50 | Outpatient (AMB) | payer MEDICARE, SELFPAY ==
--- NOTE | 2024-06-29 16:53 | MHC.PC.OV ---
Vital Signs 06/29/24 16:56 06/29/24 17:39 Height 5 ft 1 in Weight 145 lb 2 oz BMI 27.4 BP 150/80 H 150/80 H Blood Pressure Location Lt brachial Lt brachial Position Sitting Sitting Pulse 87 Pulse Source Pulse Oximeter Pulse Oximetry (%) 97 Oxygen Delivery Method Room Air Intake Visit Reasons: Annual Physical - see comments Intake Note: Patient is here today for a physical. 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 Accompanied by: Daughter Allergies penicillin V Allergy (Intermediate, Verified 06/29/24 17:03) rash Medication List - Last Reconciled 06/29/24 by Peri Trinidad MD amlodipine 10 mg PO DAILY blood pressure monitor As directed cholecalciferol (vitamin D3) 50 mcg PO DAILY 90 days clindamycin HCl 300 mg PO TID lisinopril 20 mg PO DAILY rosuvastatin 20 mg PO DAILY 90 days Tobacco use date assessed: 11/27/23 Fall risk assessment: No Falls in past year Last assessed Fall Risk: 06/29/24 Dental Screening Dental Screen Date: 11/27/23 HPI HPI Comments History of Present Illness Details This is a 78-year-old female with diabetes mellitus type 2 that comes accompanied by daughter for her physical exam. A1c slightly elevated today and I will start her on Jardiance. She did had issues with antidiabetic medications but does not remember the name of it. As per guidelines mammograms are up to 74 years old and colonoscopy are up to 75 years old. Patient did declined both today. Patient also declines DEXA scan. No need for Pap smear due to age. Blood pressure elevated today and will be recheck in 3 weeks. [facility] Medical History Mixed hyperlipidemia Diabetes mellitus Hypovitaminosis D Knee pain Essential hypertension Surgical History History of appendectomy H/O: section Family History Father Glaucoma Alzheimer disease Mother Hypertension Renal failure Social History Housing: House Alcohol intake: never Patient Tobacco Use Status: Never used Tobacco e-Cigarette/Vaping Use: Never Used Second Hand Smoke Exposure: No service: No Current occupational status: unemployed Cognitive needs: No Hearing needs: No Vision needs: Yes Questionnaire PHQ-9 Over the last 2 weeks, how often have you been bothered by any of the following problems? 1. Little interest or pleasure in doing things: not at all 2. Feeling down, depressed, or hopeless: not at all 3. Trouble falling or staying asleep, or sleeping too much: several days 4. Feeling tired or having little energy: not at all 5. Poor appetite or overeating: not at all 6. Feeling bad about yourself - or that you are a failure or have let yourself or your family down: not at all 7. Trouble concentrating on things, such as reading the newspaper or watching television: not at all 8. Moving or speaking so slowly that other people could have noticed. Or the opposite - being so fidgety or restless that you have been moving around a lot more than usual: not at all 9. Thoughts that you would be better off or of hurting yourself in some way: not at all Total score: 1 Depression Screening Interpretation: Negative Depression Screening Done: Yes 74434 - PHQ-9 Billing: Yes Source: Developed by Drs. Eliu Davis, Nara Johnson, Chris Bone and colleagues, with an educational mary jane from [employer]. Thrive Questionnaire Date Thrive assessed: 06/29/24 I am a: Patient What is your living situation today?: I have a steady place to live Within the past 12 months, did the food you bought not last and you didn't have the money to get more?: Never true Within the past 12 months, did you worry whether your food would run out before you got money to buy more?: Never true Do you have trouble paying for medicines?: No Do you have trouble getting transportation to medical appointments?: No Do you have trouble paying your heating and electricity bill?: No Do you have trouble taking care of your child, family member or friend?: No Do you have trouble with day-to-day activities such as bathing, preparing meals, shopping, managing finances, etc.?: No Are you currently unemployed and looking for a job?: No Are you interested in more education?: No Please select the resources that you would like help with: None Currently or been in a relationship where the following occur: I choose not to answer THRIVE Score: 0 AUDIT C Alcohol Use Questionnaire (AUDIT-C) 1. How often do you have a drink containing alcohol?: Never 3. How often do you have six or more drinks on one occasion?: Never Total Score: 0 Score Reviewed/Action Taken: No CONSUELO-7 AMB Questionnaire CONSUELO-7 Date CONSUELO - 7 assessed: 06/29/24 Feeling nervous, anxious, or on edge: 0 = Not at all Not being able to stop or control worryin = Not at all Worrying too much about different things: 0 = Not at all Trouble relaxin = Not at all Being so restless that it is hard to sit still: 0 = Not at all Becoming easily annoyed or irritable: 0 = Not at all Feeling afraid as if something awful might happen: 0 = Not at all Total CONSUELO-7 score (0-4 normal; 5-9 mild; 10-14 moderate; 15-21 severe): 0 Source: Developed by Drs. Eliu Davis, Nara Johnson, Chris Bone and colleagues, with an educational mary jane from [employer]. CONSUELO-7 Assessment Billing CONSUELO-7 Assessment Tool: CONSUELO-7 Assessment 04750 Review of Systems Const All systems reviewed & are unremarkable except as noted in HPI and below Card Denies chest pain at rest, Denies chest pain with activity, Denies edema, Denies irregular heart rhythm, Denies claudication, Denies dyspnea, Denies dyspnea on exertion, Denies orthopnea, Denies paroxysmal nocturnal dyspnea and Denies slow heart rate Resp Denies cough, Denies dyspnea and Denies dyspnea on exertion Physical exam (Primary Care) Vital Signs: Last Vital Signs Pulse 87 06/29/24 16:56 BP 150/80 H 06/29/24 16:56 Pulse Ox 97 06/29/24 16:56 Oxygen Delivery Method Room Air 06/29/24 16:56 BMI result Body Mass Index 27.4 Tobacco/Smoking Status: Tobacco use Status Tobacco use date assessed 11/27/23 06/29/24 16:53 Patient Tobacco Use Status Never used Tobacco 06/29/24 16:53 e-Cigarette/Vaping Use Never Used 06/29/24 16:53 PHQ-9: PHQ-9 Score PHQ-9: Total score 1 06/29/24 17:09 Depression Screening Interpretation: Negative Thrive Assessment: Date of Thrive Assessment Date Thrive assessed 06/29/24 06/29/24 16:53 Currently or been in a relationship where the following occur: I choose not to answer HENMT Head: Yes normal to inspection, Yes normocephalic and Yes atraumatic Ears: external ears normal Eyes General: appearance normal, both eyes and all related structures Eyelids: Yes eyelids normal Conjunctivae: conjunctivae normal Neck Neck: Yes normal visual inspection and Yes supple Resp Effort & Inspection: normal respiratory effort Auscultation: clear to auscultation bilaterally Cardio Jugular venous distension: no JVD Rate: regular rate Rhythm: regular rhythm Heart sounds: S1 normal heart sound present and S2 normal heart sound present GI Inspection: Yes normal to inspection Palpation (GI): Soft to palpation and nontender Auscultation: normal bowel sounds Skin General skin exam: no rashes or lesions noted Neuro General: no focal motor deficits Extrem General: Yes full ROM Psych Appearance: grossly normal Office Procedures Flu Questionnaire Does the patient have a severe egg allergy?: No Does the patient have severe life threatening allergies?: No Does the patient have a fever or illness today?: No Has the patient ever had Guillain-[place] Syndrome?: No Has the patient ever had any past reaction to a flu shot?: No Results AMB Hemoglobin A1c AMB Hemoglobin A1c 7.4 % Last Edit by GRAHAM Mcelroy on 06/29/24 17:06 Immunizations Fluarix Triv 0465-3588 (PF) 45 mcg (15 mcg x 3)/0.5 mL IM syringe Performing Provider: Peri Trinidad MD 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 0.5 mL IM Right Deltoid 0.5 mL [id number] 03/14/25 [id number] [employer] VIS Given Date VIS Provided VIS Publication Date 06/29/24 Single Vaccine 21 Eligibility Eligibility Date Funding Source Not [facility] Eligible 06/29/24 Private Results Reviewed Results Reviewed: Laboratory Last Values Hgb A1c (Clinic) 7.4 % (4.0-6.0) H 10/15/24 16:54 Coding Level of Care Code Est Pt Prev Care >65y(07275) Diagnoses Physical exam Z00.00 Type 2 diabetes mellitus without complication, without long-term current use of insulin E11.9 Diabetes mellitus type: type 2 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 A1c goal is equal or less than 7%. Orders: Orders Vitamin D 25-OH Total 4 Months E55.9 - Vitamin D deficiency, unspecified Comprehensive [place]. Panel Fast 4 Months Z00.00 - Encounter for general adult medical examination without abnormal findings AMB Hemoglobin A1c Today E11.9 - Type 2 diabetes mellitus without complications Influenza [id number] Immunization Today Z23 - Encounter for immunization Lipid Panel 4 Months E78.5 - Hyperlipidemia, unspecified Microalbumin, Random (w Creat) 4 Months R80.9 - Proteinuria, unspecified Medications: New empagliflozin (Jardiance) 10 mg PO DAILY 90 tabs 1RF 90 days cholecalciferol (vitamin D3) 25 mcg PO DAILY 90 caps 1RF 90 days Discontinued cholecalciferol (vitamin D3) Discontinued Reason: Patient Completed Course 50 mcg PO DAILY 90 days 90 caps 3RF
[2024-06-29 16:56] VITALS: BP 150/80; PULSE 87; O2SAT 97; BMI 27.4
[2024-06-29 17:39] VITALS: BP 150/80
== END 2024-06-29 17:24 | disposition home or self-care (01) ==
PROVIDERS: PCP Internal Medicine; Visit Provider Internal Medicine
DX: Z00.00 Encounter for general adult medical examination without abnormal findings (principal); E11.9 Type 2 diabetes mellitus without complications; Z23 Encounter for immunization

== ENCOUNTER → 2024-06-29 16:50 | Outpatient (BNVA) | payer MEDICARE, SELFPAY | PROVIDERS: PCP Internal Medicine; Visit Provider Internal Medicine | DX: Z00.00 Encounter for general adult medical examination without abnormal findings (principal); Z23 Encounter for immunization; E11.9 Type 2 diabetes mellitus without complications | CPT/HCPCS: 83036; 90471; 90656; 96127; 99397 ==

== ENCOUNTER 2024-11-16 11:45 | Outpatient (AMB) | payer MEDICARE, SELFPAY ==
--- NOTE | 2024-11-16 12:43 | A.OFFPC_ITS ---
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 Language: Setup Technician Name: Peri Trinidad MD Information Interpreted: non-clinical & clinical Accompanied by: Self / Same As Patient Allergies penicillin V Allergy (Intermediate, Verified 11/16/24 12:54) rash Medication List - Last Reconciled 11/16/24 by Peri Trinidad MD amlodipine 10 mg PO DAILY blood pressure monitor As directed cholecalciferol (vitamin D3) 25 mcg PO DAILY 90 days empagliflozin (Jardiance) 10 mg PO DAILY 90 days lisinopril 20 mg PO DAILY rosuvastatin 20 mg PO DAILY 90 days Tobacco use date assessed: 11/16/24 Fall risk assessment: No Falls in past year Last assessed Fall Risk: 11/16/24 Dental Screening Dental Screen Date: 11/16/24 Did you have a dental visit in the last 12 months?: Yes Did you have a dental problem in the last 6 months where you did not have access to dental care?: No Was dental information given to patient?: Patient has dentist HPI HPI Comments History of Present Illness Details The patient is a 79-year-old female presenting with follow-up for Type 2 Diabetes Mellitus and Essential Hypertension. Her recent HbA1c of 7.4% led to an increase in her Jardiance dose to 10 mg, with subsequent HbA1c of 7.3%. She reports no significant symptoms of hyperglycemia such as increased urination or thirst. Her hypertension is managed with Amlodipine and Lisinopril, and her blood pressure is well-controlled. She also receives treatment for Hyperlipidemia with Rosuvastatin. On vitamin-D supplements for her low vitamin- D. She has a known allergy to Penicillin, which manifests as a rash. [facility] Medical History Mixed hyperlipidemia Diabetes mellitus Hypovitaminosis D Knee pain Essential hypertension Surgical History History of appendectomy H/O: section Family History Father Glaucoma Alzheimer disease Mother Hypertension Renal failure Social History Housing: House Alcohol intake: never Patient Tobacco Use Status: Never used Tobacco e-Cigarette/Vaping Use: Never Used Second Hand Smoke Exposure: No service: No Current occupational status: unemployed Cognitive needs: No Hearing needs: No Vision needs: Yes Questionnaire PHQ-9 Over the last 2 weeks, how often have you been bothered by any of the following problems? 1. Little interest or pleasure in doing things: not at all 2. Feeling down, depressed, or hopeless: not at all 3. Trouble falling or staying asleep, or sleeping too much: not at all 4. Feeling tired or having little energy: not at all 5. Poor appetite or overeating: not at all 6. Feeling bad about yourself - or that you are a failure or have let yourself or your family down: not at all 7. Trouble concentrating on things, such as reading the newspaper or watching television: not at all 8. Moving or speaking so slowly that other people could have noticed. Or the opposite - being so fidgety or restless that you have been moving around a lot more than usual: not at all 9. Thoughts that you would be better off or of hurting yourself in some way: not at all Total score: 0 Depression Screening Interpretation: Negative Depression Screening Done: Yes 03695 - PHQ-9 Billing: Yes Source: Developed by Drs. Eliu Davis, Nara Johnson, Chris Bone and colleagues, with an educational mary jane from [employer]: turn off the lights. Thrive Questionnaire Date Thrive assessed: 11/16/24 I am a: Patient What is your living situation today?: I have a steady place to live Within the past 12 months, did the food you bought not last and you didn't have the money to get more?: Never true Within the past 12 months, did you worry whether your food would run out before you got money to buy more?: Never true Do you have trouble paying for medicines?: No Do you have trouble getting transportation to medical appointments?: No Do you have trouble paying your heating and electricity bill?: No Do you have trouble taking care of your child, family member or friend?: No Do you have trouble with day-to-day activities such as bathing, preparing meals, shopping, managing finances, etc.?: No Are you currently unemployed and looking for a job?: No Are you interested in more education?: No Please select the resources that you would like help with: None Currently or been in a relationship where the following occur: I choose not to answer THRIVE Score: 0 AUDIT C Alcohol Use Questionnaire (AUDIT-C) 1. How often do you have a drink containing alcohol?: Never Total Score: 0 Score Reviewed/Action Taken: No CONSUELO-7 AMB Questionnaire CONSUELO-7 Date CONSUELO - 7 assessed: 11/16/24 Feeling nervous, anxious, or on edge: 0 = Not at all Not being able to stop or control worryin = Not at all Worrying too much about different things: 0 = Not at all Trouble relaxin = Not at all Being so restless that it is hard to sit still: 0 = Not at all Becoming easily annoyed or irritable: 0 = Not at all Feeling afraid as if something awful might happen: 0 = Not at all Total CONSUELO-7 score (0-4 normal; 5-9 mild; 10-14 moderate; 15-21 severe): 0 Source: Developed by Drs. Eliu Davis, Nara Johnson, Chris Bone and colleagues, with an educational mary jane from [employer]: turn off the lights. CONSUELO-7 Assessment Billing CONSUELO-7 Assessment Tool: CONSUELO-7 Assessment 58775 Review of Systems Const All systems reviewed & are unremarkable except as noted in HPI and below Card Denies chest pain at rest, Denies chest pain with activity, Denies edema, Denies irregular heart rhythm, Denies claudication, Denies dyspnea, Denies dyspnea on exertion, Denies orthopnea, Denies paroxysmal nocturnal dyspnea and Denies slow heart rate Resp Denies cough, Denies dyspnea and Denies dyspnea on exertion Musc Denies atrophy, Denies deformity and Denies limited range of motion Physical exam (Primary Care) Vital Signs: Last Vital Signs BP 134/70 11/16/24 12:48 BMI result Body Mass Index 26.8 Tobacco/Smoking Status: Tobacco use Status Tobacco use date assessed 11/16/24 11/16/24 12:51 Patient Tobacco Use Status Never used Tobacco 11/16/24 12:46 e-Cigarette/Vaping Use Never Used 11/16/24 12:46 PHQ-9: PHQ-9 Score PHQ-9: Total score 0 11/16/24 12:46 Depression Screening Interpretation: Negative Thrive Assessment: Date of Thrive Assessment Date Thrive assessed 11/16/24 11/16/24 12:46 Currently or been in a relationship where the following occur: I choose not to answer Resp Effort & Inspection: normal respiratory effort Auscultation: clear to auscultation bilaterally Cardio Jugular venous distension: no JVD Rate: regular rate Rhythm: regular rhythm Heart sounds: S1 normal heart sound present and S2 normal heart sound present Extrem General: Yes full ROM Results AMB Hemoglobin A1c AMB Hemoglobin A1c 7.3 % Last Edit by ALICE Dubois on 11/16/24 12:5 6 Coding Level of Care Code Est Pt Level 4 (26450) Complex EM visit Add On G2211 Diagnoses Type 2 diabetes mellitus without complication, without long-term current use of insulin E11.9 Diabetes mellitus type: type 2 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: without intermediate school teacher use Diabetes mellitus complication status: without complication Mixed hyperlipidemia E78.2 Essential hypertension I10 Hypovitaminosis D E55.9 Additional Codes PHQ-9 - 82493 - PHQ-9 Billing: Yes ([id number]) CONSUELO-7 Assessment Billing - CONSUELO-7 Assessment Tool: CONSUELO-7 Assessment 73315 ([id number]) Time Spent (min) 20 Assessment & Plan Assessment & Plan (1) Diabetes mellitus: Code(s): E11.9 - Type 2 diabetes mellitus without complications Category: Medical Qualifiers: Diabetes mellitus type: type 2 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 Hyperlipidemia management remains on Rosuvastatin, and the patient will avoid Penicillin due to allergies. No new diagnostics were deemed necessary. The patient will follow-up to reassess HbA1c and review symptoms. Will increase Jardiance to 25 mg for her A1c. Patient was informed and verbally consented to the use of an ambient scribe for clinic note documentation during this visit. We discussed the importance of glycemic control and the decision to increase Jardiance to 25 mg to help lower the HbA1c level. I reviewed the management of h er hypertension and hyperlipidemia, affirming the continuation of current medications with no changes. I confirmed her understanding of the risks related to Penicillin allergy. We discussed the anticipation of checking HbA1c at the next visit to evaluate the efficacy of increased Jardiance dosage. Orders: Orders AMB Hemoglobin A1c Today E11.9 - Type 2 diabetes mellitus without complications Medications: New empagliflozin (Jardiance) 25 mg PO DAILY 90 days 90 tabs 1RF Discontinued empagliflozin (Jardiance) Discontinued Reason: Patient Completed Course 10 mg PO DAILY 90 days 90 tabs 1RF Patient Instructions: - Continue taking Amlodipine, Lisinopril, and Rosuvastatin as prescribed. - Start taking Jardiance 25 mg as instructed. - Avoid Penicillin due to allergy. - Monitor any symptoms of high blood sugar or hypertension. - Prepare for an HbA1c recheck at the next visit.
[2024-11-16 12:48] VITALS: BP 134/70; BMI 26.8
== END 2024-11-16 13:06 | disposition home or self-care (01) ==
PROVIDERS: PCP Internal Medicine; Visit Provider Internal Medicine
DX: E11.9 Type 2 diabetes mellitus without complications (principal); E78.2 Mixed hyperlipidemia; I10 Essential (primary) hypertension; E55.9 Vitamin D deficiency, unspecified

== ENCOUNTER → 2024-11-16 11:45 | Outpatient (BNVA) | payer MEDICARE, SELFPAY | PROVIDERS: PCP Internal Medicine; Visit Provider Internal Medicine | DX: E11.9 Type 2 diabetes mellitus without complications (principal); E78.2 Mixed hyperlipidemia; E55.9 Vitamin D deficiency, unspecified; I10 Essential (primary) hypertension | CPT/HCPCS: 83036; 96127; 99212 ==

== ENCOUNTER 2025-09-05 08:13 | Outpatient (REF) | payer MEDICARE, SELFPAY ==
[2025-09-05 09:20] LABS: Alanine Aminotransferase 25 U/L (0-31); Albumin Level 4.8 g/dL (3.5-5.0); Alkaline Phosphatase 52 U/L (39-117); Anion Gap 11 (12-20); Aspartate Amino Transferase 32 U/L (5-31); Blood Urea Nitrogen 16 mg/dL (9-16); Calcium 9.6 mg/dL (8.4-10.2); Carbon Dioxide 27 mmol/L (22-29); Chloride 109 mmol/L (96-108); Cholesterol 136 mg/dL (<200); Estimated Glomerular Filt Rate > 60; HDL Cholesterol 62 mg/dL (>40); Potassium 4.9 mmol/L (3.3-5.1); Sodium 142 mmol/L (135-145); Total Protein 7.4 g/dL (6.5-8.0); Triglycerides 83 mg/dL (<150)
[2025-09-05 09:53] LABS: Microalbum/Creatinine Ratio Ur 9.5 ug/mg cr (<30)
== END 2025-09-05 08:14 | disposition home or self-care (01) ==
LOC: HO.LAB 08:13
PROVIDERS: PCP Internal Medicine; Visit Provider Internal Medicine
DX: Z00.00 Encounter for general adult medical examination without abnormal findings (principal); E78.5 Hyperlipidemia, unspecified; E55.9 Vitamin D deficiency, unspecified; R80.9 Proteinuria, unspecified
CPT/HCPCS: 36415; 80053; 80061; 82043; 82306; 82570

== ENCOUNTER 2025-09-06 16:44 | Outpatient (AMB) | payer MEDICARE, SELFPAY ==
--- NOTE | 2025-09-06 17:03 | A.OFFPC_ITS ---
Vital Signs 09/06/25 17:04 Height 5 ft 1 in Weight 141 lb 4 oz BMI 26.7 BP 146/60 H Blood Pressure Location Lt brachial Position Sitting Respiration 16 Pulse 89 Pulse Source Pulse Oximeter Temp 97.3 F Temp Source Temporal Artery Scan Pulse Oximetry (%) 99 Oxygen Delivery Method Room Air Intake Visit Reasons: DM Intake Note: Patient here for a follow up DM Business Practices Officer Required: Yes Business Practices Officer Language: Student Accounts Coordinator Name: Peri Trinidad MD Information Interpreted: non-clinical & clinical Accompanied by: Self / Same As Patient Allergies penicillin V Allergy (Intermediate, Verified 09/06/25 17:19) rash Medication List - Last Reconciled 09/06/25 by Peri Trinidad MD alprazolam 0.25 mg PO BID PRN 3 days amlodipine 10 mg PO DAILY blood pressure monitor As directed cholecalciferol (vitamin D3) 25 mcg PO DAILY 90 days lisinopril 20 mg PO DAILY pioglitazone 15 mg PO DAILY 90 days rosuvastatin 20 mg PO DAILY 90 days Tobacco use date assessed: 11/16/24 Fall risk assessment: No Falls in past year Last assessed Fall Risk: 11/16/24 Dental Screening Dental Screen Date: 09/06/25 Did you have a dental visit in the last 12 months?: Yes Did you have a dental problem in the last 6 months where you did not have access to dental care?: No Was dental information given to patient?: Patient has dentist HPI HPI Comments History of Present Illness Details This is a 79-year-old female with diabetes mellitus type 2, hypertension, hyperlipidemia low vitamin-D that comes today for follow-up on her conditions. A1c of 6.1% today. Blood pressure borderline normal to elevated. LDL within goal being less than 70. On vitamin-D supplements for her low vitamin-D and vitamin-D levels are close to normal. She denies any chest pain or shortness on breath. Compliant with medications. [facility] Medical History Mixed hyperlipidemia Diabetes mellitus Hypovitaminosis D Knee pain Essential hypertension Surgical History History of appendectomy H/O: section Family History Father Glaucoma Alzheimer disease Mother Hypertension Renal failure Social History Housing: House Alcohol intake: never Patient Tobacco Use Status: Never used Tobacco e-Cigarette/Vaping Use: Never Used Second Hand Smoke Exposure: No service: No Current occupational status: unemployed Cognitive needs: No Hearing needs: No Vision needs: Yes Questionnaire PHQ-9 Over the last 2 weeks, how often have you been bothered by any of the following problems? 1. Little interest or pleasure in doing things: not at all 2. Feeling down, depressed, or hopeless: not at all 3. Trouble falling or staying asleep, or sleeping too much: not at all 4. Feeling tired or having little energy: not at all 5. Poor appetite or overeating: not at all 6. Feeling bad about yourself - or that you are a failure or have let yourself or your family down: not at all 7. Trouble concentrating on things, such as reading the newspaper or watching television: not at all 8. Moving or speaking so slowly that other people could have noticed. Or the opposite - being so fidgety or restless that you have been moving around a lot more than usual: not at all 9. Thoughts that you would be better off or of hurting yourself in some way: not at all Total score: 0 Depression Screening Interpretation: Negative Depression Screening Done: Yes 82375 - PHQ-9 Billing: Yes Source: Developed by Drs. Eliu Davis, Nara Johnson, Chris Bone and colleagues, with an educational mary jane from [employer]. Thrive Questionnaire Date Thrive assessed: 09/06/25 I am a: Patient What is your living situation today?: I have a steady place to live Within the past 12 months, did the food you bought not last and you didn't have the money to get more?: Often true Within the past 12 months, did you worry whether your food would run out before you got money to buy more?: Never true Do you have trouble paying for medicines?: No Do you have trouble getting transportation to medical appointments?: No Do you have trouble paying your heating and electricity bill?: No Do you have trouble taking care of your child, family member or friend?: No Do you have trouble with day-to-day activities such as bathing, preparing meals, shopping, managing finances, etc.?: No Are you currently unemployed and looking for a job?: I choose not to answer this question Are you interested in more education?: No Please select the resources that you would like help with: None Currently or been in a relationship where the following occur: I choose not to answer THRIVE Score: 1 AUDIT C Alcohol Use Questionnaire (AUDIT-C) 1. How often do you have a drink containing alcohol?: Never Total Score: 0 CONSUELO-7 AMB Questionnaire CONSUELO-7 Date CONSUELO - 7 assessed: 09/06/25 Feeling nervous, anxious, or on edge: 0 = Not at all Not being able to stop or control worryin = Not at all Worrying too much about different things: 0 = Not at all Trouble relaxin = Not at all Being so restless that it is hard to sit still: 0 = Not at all Becoming easily annoyed or irritable: 0 = Not at all Feeling afraid as if something awful might happen: 0 = Not at all Total CONSUELO-7 score (0-4 normal; 5-9 mild; 10-14 moderate; 15-21 severe): 0 Source: Developed by Drs. Eliu Davis, Nara Johnson, Chris Bone and colleagues, with an educational mary jane from [employer]. Review of Systems Const All systems reviewed & are unremarkable except as noted in HPI and below Card Denies chest pain at rest, Denies chest pain with activity, Denies edema, Denies irregular heart rhythm, Denies claudication, Denies dyspnea, Denies dyspnea on exertion, Denies orthopnea, Denies paroxysmal nocturnal dyspnea and Denies slow heart rate Resp Denies cough, Denies dyspnea and Denies dyspnea on exertion GI Denies abdominal pain, Denies change in bowel habits, Denies excessive flatus, Denies nausea and Denies vomiting Physical exam (Primary Care) Vital Signs: Last Vital Signs Temp 97.3 F 09/06/25 17:04 Pulse 89 09/06/25 17:04 Resp 16 09/06/25 17:04 BP 146/60 H 09/06/25 17:04 Pulse Ox 99 09/06/25 17:04 Oxygen Delivery Method Room Air 09/06/25 17:04 BMI result Body Mass Index 26.7 Tobacco/Smoking Status: Tobacco use Status Tobacco use date assessed 11/16/24 09/06/25 17:13 Patient Tobacco Use Status Never used Tobacco 09/06/25 17:13 e-Cigarette/Vaping Use Never Used 09/06/25 17:13 PHQ-9: PHQ-9 Score PHQ-9: Total score 0 09/06/25 17:23 Depression Screening Interpretation: Negative Thrive Assessment: Date of Thrive Assessment Date Thrive assessed 09/06/25 09/06/25 17:13 Currently or been in a relationship where the following occur: I choose not to answer Resp Effort & Inspection: normal respiratory effort Auscultation: clear to auscultation bilaterally Cardio Jugular venous distension: no JVD Rate: regular rate Rhythm: regular rhythm Heart sounds: S1 normal heart sound present and S2 normal heart sound present Extrem General: Yes full ROM Results AMB Hemoglobin A1c AMB Hemoglobin A1c 6.1 % Last Edit by Dk Pack MA on 09/06/25 17:31 Coding Level of Care Code Est Pt Level 4 (61337) Diagnoses Essential hypertension I10 Type 2 diabetes mellitus without complication, without long-term current use of insulin E11.9 Diabetes mellitus type: type 2 Diabetes mellitus corporate responsibility officer insulin use: without corporate responsibility officer use Diabetes mellitus complication status: without complication Mixed hyperlipidemia E78.2 Hypovitaminosis D E55.9 Additional Codes PHQ-9 - 68485 - PHQ-9 Billing: Yes ([id number]) Time Spent (min) 21 Assessment & Plan Assessment & Plan (1) Essential hypertension: Code(s): I10 - Essential (primary) hypertension Category: Medical (2) Diabetes mellitus: Code(s): E11.9 - Type 2 diabetes mellitus without complications Category: Medical Qualifiers: Diabetes mellitus type: type 2 Diabetes mellitus detention insulin use: without detention use Diabetes mellitus complication status: without complication Qualified Code(s): E11.9 - Type 2 diabetes mellitus without complications (3) Mixed hyperlipidemia: Code(s): E78.2 - Mixed hyperlipidemia Category: Medical (4) Hypovitaminosis D: Code(s): E55.9 - Vitamin D deficiency, unspecified Category: Medical Plan Continue same medications. A1c goal is equal or less than 7%. LDL goal is less than 70. Blood pressure goal is equal or less than 130/80. Orders: Orders AMB Hemoglobin A1c Today Z13.9 - Encounter for screening, unspecified
[2025-09-06 17:04] VITALS: BP 146/60; PULSE 89; RESP 16; TEMP 36.3; O2SAT 99; BMI 26.7
== END 2025-09-06 17:28 | disposition home or self-care (01) ==
LOC: HO.HMCH 16:45
PROVIDERS: PCP Internal Medicine; Visit Provider Internal Medicine
DX: I10 Essential (primary) hypertension (principal); E11.9 Type 2 diabetes mellitus without complications; E78.2 Mixed hyperlipidemia; E55.9 Vitamin D deficiency, unspecified; Z13.9 Encounter for screening, unspecified

== ENCOUNTER → 2025-09-06 16:44 | Outpatient (BNVA) | payer MEDICARE, SELFPAY | PROVIDERS: PCP Internal Medicine; Visit Provider Internal Medicine | DX: I10 Essential (primary) hypertension (principal); E11.9 Type 2 diabetes mellitus without complications; E78.2 Mixed hyperlipidemia; E55.9 Vitamin D deficiency, unspecified; Z13.31 Encounter for screening for depression; Z13.39 Encounter for screening examination for other mental health and behavioral disorders | CPT/HCPCS: 83036; 96127; 99212 ==